=== PATIENT | male | born 1975 | race Caucasian/White ===

== ENCOUNTER 2023-01-24 15:38 | Emergency (ER) | payer MEDICAID ==
[~2023-01-24] VITALS: Ht 167.6 cm; Wt 95.3 kg
[2023-01-24] MEDS ORDERED: KETOROLAC TROMETHAMINE INJ 30 MG/ML VIAL ONE (16:54)
[2023-01-24] MEDS ORDERED: KETOROLAC TROMETHAMINE INJ 30 MG/ML VIAL IV ONE (17:00)
[2023-01-24] MEDS ORDERED: IV NS 0.9% 1,000 ML BAG IV ONE (17:00)
[2023-01-24 17:17] LABS: BASOPHILS % (AUTO) 0.4 % (0.0-2.0); EOSINOPHILS # (AUTO) 0.1 K/uL (0.0-0.7); EOSINOPHILS % (AUTO) 0.6 % (0.0-6.0); HEMATOCRIT 45 % (39-51); HEMOGLOBIN 15.2 g/dL (13.5-17.5); LYMPHOCYTES # (AUTO) 2.7 K/uL (0.8-4.8); LYMPHOCYTES % (AUTO) 24.3 % (20.0-44.0); MEAN CORPUSCULAR HEMOGLOBIN 29 PG (26.0-33.0); MEAN CORPUSCULAR HGB CONC 34 g/dl (31.0-36.0); MEAN CORPUSCULAR VOLUME 87 fL (80-96); MONOCYTES # (AUTO) 0.7 K/uL (0.1-1.30); MONOCYTES % (AUTO) 6.2 % (2.0-12.0); NEUTROPHILS # (AUTO) 7.6 K/uL (1.8-8.9); NEUTROPHILS % (AUTO) 68.5 % (43.0-81.0); PLATELET COUNT (AUTO) 252 K/uL (150-450); RED BLOOD CELL COUNT(AUTO) 5.23 MIL/uL (4.5-6.0); RED CELL DISTRIBUTION WIDTH 12.7 % (11.5-15.0); WHITE BLOOD COUNT (AUTO) 11.1 K/uL (4.3-11.0)
[2023-01-24 17:39] LABS: APPEARANCE,URINE CLEAR (CLEAR); BILIRUBIN,URINE NEGATIVE (NEGATIVE); BLOOD, URINE 2+ Ery/uL (NEGATIVE); COLOR,URINE YELLOW (YELLOW); KETONES,URINE NEGATIVE (NEGATIVE); LEUKOCYTE ESTERASE ,URINE NEGATIVE (NEGATIVE); NITRITE, URINE NEGATIVE (NEGATIVE); PH,URINE 5.5 (5.0-8.0); PROTEIN,URINE NEGATIVE (NEGATIVE); UGLUCOSE NEGATIVE (NEGATIVE); UROBILINOGEN,URINE 0.2 EU/dL (0.2)
[2023-01-24 17:51] LABS: ADD URINE CULTURE NO; BACTERIA,URINE None seen /HPF (None Seen); MUCUS,URINE Few /LPF (None Seen); RBC,URINE 21-50 /HPF (0-2); SQUAMOUS EPITHELIAL CELL,UR 0-2 /HPF (None Seen); WBC,URINE 0-2 /HPF (0-3)
[2023-01-24 17:52] LABS: ALBUMIN 3.8 g/dL (3.4-5.0); BILIRUBIN,DIRECT 0.1 mg/dL (0.0-0.2); BILIRUBIN,TOTAL 0.6 mg/dL (0.2-1.0); CALCIUM, SERUM 9.1 mg/dL (8.5-10.1); POTASSIUM 3.6 mmol/L (3.5-5.1); TOTAL PROTEIN, SERUM 8.2 g/dL (6.4-8.2)
[2023-01-24] MEDS ORDERED: ONDA4TAB5 PO (19:08)
[2023-01-24] MEDS ORDERED: IBUP-1958 PO (19:08)
[2023-01-24 19:20] VITALS: BP 145/86; TEMP 98.4; O2SAT 100
== END 2023-01-24 19:21 | disposition home or self-care (01) ==
LOC: ER 15:55
DX: N20.0 Calculus of kidney (principal); Z87.442 Personal history of urinary calculi; Z60.2 Problems related to living alone
CPT/HCPCS: 99284; 74176; 85025; 80048; 83690; 80076; 81001; 36415; J7030; J1885

== ENCOUNTER 2025-02-08 17:55 | Emergency (ER) | payer MEDICAID ==
[~2025-02-08] VITALS: Ht 170.2 cm; Wt 95.3 kg
[~2025-02-08 17:55] MED LIST: IBUP-1958 PO; ONDA4TAB5 PO
[2025-02-08] MEDS ORDERED: ACETAMINOPHEN 325 MG TABLET ONE (18:30)
[2025-02-08] MEDS ORDERED: MUPIROCIN OINT 2% 22 GM TUBE ONE (18:30)
[2025-02-08] MEDS: ACETAMINOPHEN 325 MG TABLET PO ONE (18:36)
[2025-02-08] MEDS: MUPIROCIN OINT 2% 22 GM TUBE TP ONE (18:36)
[2025-02-08] MEDS ORDERED: MUPI22OI7 TP (19:08)
[2025-02-08 19:22] VITALS: BP 134/80; TEMP 98.5; O2SAT 99
== END 2025-02-08 19:22 | disposition home or self-care (01) ==
LOC: ER 17:56
DX: S51.011A Laceration without foreign body of right elbow, initial encounter (principal); S60.221A Contusion of right hand, initial encounter; Z87.442 Personal history of urinary calculi; Z60.2 Problems related to living alone; Z79.899 Other long term (current) drug therapy; W22.8XXA Striking against or struck by other objects, initial encounter; Y93.89 Activity, other specified; Y92.89 Other specified places as the place of occurrence of the external cause; Y99.9 Unspecified external cause status
CPT/HCPCS: 99284; 73080; 73130; 73110; A6403 ×2